=== PATIENT | female | born 1955 | race Caucasian/White ===

== ENCOUNTER 2017-01-22 13:17 | Emergency (ER) | END 2017-01-22 17:51 | disposition home or self-care (01) | DX: R63.4 Abnormal weight loss (principal); E86.9 Volume depletion, unspecified; G20 Parkinson's disease; R40.2142 Coma scale, eyes open, spontaneous, at arrival to emergency department; R40.2242 Coma scale, best verbal response, confused conversation, at arrival to emergency department; R40.2342 Coma scale, best motor response, flexion withdrawal, at arrival to emergency department; Z79.82 Long term (current) use of aspirin | CPT/HCPCS: 36415; 80053; 81001; 82962; 83690; 85025; 96361; 96374; J7030; Z7502; Z7610 ==